=== PATIENT | female | born 1935 | race Caucasian/White ===

== ENCOUNTER → 2017-07-23 | Outpatient (CLI) | payer MEDICARE, BC ==
[~2017-07-23] MED LIST: ATOR10TA65 PO; CHOL100016 PO; DIAZ5SOL PO; LISI20TA11 PO; MULT-236 PO
--- NOTE | 2017-07-23 15:13 | RADRPT ---
PROCEDURE: XR Right hip and pelvis. CLINICAL INDICATION: Right hip pain. Pelvic pain. Postop. TECHNIQUE: Three views. Frontal pelvis. Frontal and lateral right hip. COMPARISON: No prior studies are available for comparison. FINDINGS: There is no fracture or dislocation. The soft tissues are normal. There is a left hip total arthroplasty which appears satisfactory. There are degenerative changes of the right hip with joint space narrowing, subchondral sclerosis, s ubchondral cysts, and osteophytes. There is no lytic or blastic lesion. The upper pelvis is not completely included on the image. IMPRESSION: 1. Satisfactory postoperative appearance of the left hip. 2. Moderate degenerative changes of the right hip. 2. Grossly normal appearance of the left hip. RPTAT: QQ .Bandar Oliveira MD, Date Time Electronically viewed and signed by .Bandar Oliveira MD, on 07/23/2017 15:12 .R/
== END | disposition home or self-care (01) ==
LOC: HKI 08:29
PROVIDERS: ATTEND Orthopaedic Surgery
DX: M16.11 Unilateral primary osteoarthritis, right hip (principal); Z09 Encounter for follow-up examination after completed treatment for conditions other than malignant neoplasm; Z96.641 Presence of right artificial hip joint
CPT/HCPCS: 73502; G0463